=== PATIENT | female | born 1950 | race Caucasian/White ===

== ENCOUNTER 2024-03-03 10:23 | Day surgery (SDC) | payer MEDICARE, OTHER ==
[2024-03-03] VITALS (12 sets, daily range): BP systolic 103–155; BP diastolic 71–101; PULSE 69–93; RESP 12–17; O2SAT 96–98
[~2024-03-03] VITALS: Ht 152.4 cm; Wt 67.5 kg
[2024-03-03] MEDS ORDERED: LISI2.5T14 PO (10:43)
[2024-03-03] MEDS ORDERED: POTA-206 PO (10:43)
[2024-03-03] MEDS ORDERED: APIX5TAB3 PO (10:43)
[2024-03-03] MEDS ORDERED: ATOR20TA66 PO (10:43)
[2024-03-03] MEDS ORDERED: FURO-150 PO (10:43)
[2024-03-03] MEDS ORDERED: METF-1203 PO (10:43)
[2024-03-03] MEDS ORDERED: SEMA0.258 SQ (10:43)
[2024-03-03] MEDS ORDERED: OSC500T PO (10:44)
[2024-03-03] MEDS: fentaNYL/PF 50MCG/1 ML 2ML syringe IV ONE (15:27)
[2024-03-03] MEDS: MIDAZolam 1mg/ml 10ml vial IV ONE (15:28)
[2024-03-03] MEDS: normal saline 1000ml 1,000 ML IV SCH (15:28)
== END 2024-03-03 16:45 | disposition home or self-care (01) ==
LOC: SSTAY O 10:23 → EDSTATUS 14:00 → SSTAY O 16:45
PROVIDERS: ATTEND Student in an Organized Health Care Education/Training Program
DX: I34.0 Nonrheumatic mitral (valve) insufficiency (principal); I10 Essential (primary) hypertension; I48.91 Unspecified atrial fibrillation; E11.9 Type 2 diabetes mellitus without complications; I48.0 Paroxysmal atrial fibrillation; Z79.01 Long term (current) use of anticoagulants; Z79.899 Other long term (current) drug therapy; Z98.890 Other specified postprocedural states
CPT/HCPCS: 93312; 93325; J2250; J3010; J7030